=== PATIENT | male | born 1990 | race African-American/Black ===

== ENCOUNTER 2024-01-25 15:29 | Emergency (ER) | payer MEDICAID, OTHER ==
[~2024-01-25] VITALS: Ht 177.8 cm; Wt 81.8 kg
[~2024-01-25 15:29] MED LIST: ALBU18HF12 IH; DIVA-153 PO; QUET200T PO
[2024-01-25 17:06] LABS: BASOPHILS % (AUTO) 0.5 % (0.0-2.0); HEMATOCRIT 45.7 % (41-53); HEMOGLOBIN 14.8 g/dL (13.5-17.5); LYMPHOCYTES # (AUTO) 1.7 K/uL (1.0-4.8); LYMPHOCYTES % (AUTO) 12.1 % (22.0-44.0); MEAN CORPUSCULAR HGB CONC 32.4 G/dL (31.0-37.0); MEAN CORPUSCULAR VOLUME 83 fL (80-100); MONOCYTES # (AUTO) 1.3 K/uL (0.1-1.0); MONOCYTES % (AUTO) 9.3 % (2.0-9.0); NEUTROPHILS # (AUTO) 10.2 K/uL (1.8-7.7); NEUTROPHILS % (AUTO) 73.1 % (40.0-70.0); PLATELET COUNT (AUTO) 253 K/uL (150-450); RED BLOOD CELL COUNT(AUTO) 5.49 MIL/uL (4.50-5.90)
[2024-01-25 17:10] LABS: ANION GAP 11 mmol/L (8-16); CALCIUM, TOTAL 9.1 mg/dL (8.8-10.5); CARBON DIOXIDE 26 mmol/L (22-29); CHLORIDE 104 mmol/L (98-107); CREATININE 1.05 mg/dL (0.60-1.30); GLOMERULAR FILTR. RATE CALC > 60 mL/min (>60); GLUCOSE,RANDOM 87 mg/dL (70-110); POTASSIUM 3.8 mmol/L (3.5-5.1); SODIUM SERUM 141 mmol/L (136-145); UREA NITROGEN, BLOOD 9 mg/dL (7-18)
[2024-01-25 17:41] LABS: INFLUENZA A-RTPCR,COMBO NEGATIVE (NEGATIVE); INFLUENZA B-RTPCR,COMBO NEGATIVE (NEGATIVE); RESPIRATORY SYNCYTIAL VRS-PCR NEGATIVE (NEGATIVE); SARS COVID19 RTPCR, COMBO NEGATIVE (NEGATIVE)
[2024-01-25] MEDS: ACETAMINOPHEN 325 MG TABLET PO ONE (18:11)
[2024-01-25 18:26] VITALS: PULSE 107; RESP 24; O2SAT 95
[2024-01-25] MEDS: IPRATROPIUM BROMIDE 0.5 MG/2.5 ML NEB SOLUTION NEB ONE (18:26)
[2024-01-25] MEDS: ALBUTEROL SULFATE 2.5 MG/0.5 ML NEB SOLUTION NEB ONE (18:26)
[2024-01-25 18:41] VITALS: PULSE 108; RESP 24; O2SAT 98
[2024-01-25] MEDS: GuaiFENesin/D-METHORPHAN/PHENYLEPH 5 ML LIQUID ORAL.SYG PO ONE (20:04)
[2024-01-25] MEDS: SODIUM CHLORIDE 0.9% 1,000 ML IV ONE (20:11)
[2024-01-25] MEDS ORDERED: ALBU18HF12 IH (20:56)
[2024-01-25] MEDS ORDERED: OXYM15SP63 NASAL (20:56)
[2024-01-25] MEDS ORDERED: GUAIF10 PO (20:56)
[2024-01-25 22:06] VITALS: BP 129/75; PULSE 103; RESP 20; TEMP 99.2; O2SAT 96
== END 2024-01-25 23:45 | disposition home or self-care (01) ==
LOC: EMS 15:29
DX: J06.9 Acute upper respiratory infection, unspecified (principal); R05.9 Cough, unspecified; R09.81 Nasal congestion; J45.909 Unspecified asthma, uncomplicated; Z91.010 Allergy to peanuts; Z91.011 Allergy to milk products; Z91.018 Allergy to other foods; Z20.822 Contact with and (suspected) exposure to COVID-19
CPT/HCPCS: 99285; 96360; 0241U; 71045; 80048; 85025; 36415; 94640; J7030; J7613